=== PATIENT | female | born 1930 | race Caucasian/White ===

== ENCOUNTER 2017-05-12 04:50 | Emergency (ER) | payer MEDICARE ==
[2017-05-12] MEDS ORDERED: Ibuprofen 800 MG TAB ONE (07:55)
--- NOTE | 2017-05-12 07:58 | RAD ---
LEFT KNEE FOUR VIEWS: History: Injury. Left knee pain. FINDINGS/IMPRESSION: No acute fracture or dislocation is identified. No definite joint effusion is seen. POS: [facility]
--- NOTE | 2017-05-12 08:24 | CT ---
PRELIMINARY REPORT/[facility]/EMERGENCY AFTER HOURS PROCEDURE: EXAM: CT Head Without Intravenous Contrast CLINICAL HISTORY: 87 years old, female; Injury or trauma; Fall; Initial encounter; Laceration; Consciousness not specif ied; Without residual foreign body; Head, generalized; Injury date: 05/12/17; Additional info: 87 yo f with h/o alzheimer's presents to ed S/P fall at [facility] last night. Family reports pt has cut to head and reports pt C/O l knee pain. Pt does not take blood thinners. Tetanus current as pt is in a nh. TECHNIQUE: Axial computed tomography images of the head/brain without intravenous contrast. All CT scans at this facility use one or more dose reduction techniques, viz.: automated exposure control; ma/kV adjustme nt per patient size (including targeted exams where dose is matched to indication; i.e. head); or ite rative reconstruction technique. COMPARISON: No relevant prior studies available. FINDINGS: Brain: Moderate volume loss No hemorrhage. Mild white matter disease. No edema. Ventricles: Unremarkable. No ventriculomegaly. Bones/joints: Unremarkable. No acute fracture. Soft tissues: Unremarkable. Sinuses: Minimal air fluid level in the left sphenoid sinus Mastoid air cells: Unremarkable as visualized. No mastoid effusion. IMPRESSION: No intracranial hemorrhage.Please see discussion above. Thank you for allowing us to participate in the care of your patient. Dictated and Authenticated by: Marv Mix MD 05/12/2017 7:10 AM Central Time ([place] & [place]) CT BRAIN WITHOUT CONTRAST: FINAL REPORT I agree with the preliminary report given by Dr. Marv Mix of [facility]. POS: [facility]
--- NOTE | 2017-05-12 08:26 | CT ---
PRELIMINARY REPORT/[facility]/EMERGENCY AFTER HOURS PROCEDURE: EXAM: CT Cervical Spine Without Intravenous Contrast CLINICAL HISTORY: 87 years old, female; Injury or trauma; Fall; Initial encounter; Laceration; Without foreign body; In jury date: 05/12/17; Additional info: 87 yo f with h/o alzheimer's presents to ed S/P fall at [facility] last night. Family reports pt has cut to head and reports pt C/O l knee pain. Pt does not take bl ood thinners. Tetanus current as pt is in a nh. TECHNIQUE: Axial computed tomography images of the cervical spine without intravenous contrast. All CT scans at this facility use one or more dose reduction techniques, viz.: automated exposure control; ma/kV adju stment per patient size (including targeted exams where dose is matched to indication; i.e. head); or iterative reconstruction technique. Coronal and sagittal reformatted images were created and reviewed. COMPARISON: No relevant prior studies available. FINDINGS: Vertebrae: Loss of vertebral body height, presumed degenerative No acute fracture. Discs/spinal canal/neural foramina: No acute findings. Central canal and foraminal stenosis most pron ounced at C5-C6 and C6-C7 Soft tissues: Unremarkable. Lung apices: Right apical scarring IMPRESSION: No definite acute cervical fracture Thank you for allowing us to participate in the care of your patient. Dictated and Authenticated by: Marv Mix MD 05/12/2017 7:09 AM Central Time ([place] & [place]) FINAL REPORT CT CERVICAL SPINE WITH CORONAL AND SAGITTAL REFORMATIONS: Date: 05/12/17 FINDINGS/IMPRESSION: I agree with the preliminary report given by Dr. Marv Mix of [facility]. POS: [facility]
== END 2017-05-12 08:17 | disposition home or self-care (01) ==
LOC: ERS 04:50
DX: S00.81XA Abrasion of other part of head, initial encounter (principal); F03.90 Unspecified dementia, unspecified severity, without behavioral disturbance, psychotic disturbance, mood disturbance, and anxiety; I10 Essential (primary) hypertension; F41.9 Anxiety disorder, unspecified; F32.9 Major depressive disorder, single episode, unspecified; Z79.899 Other long term (current) drug therapy; W19.XXXA Unspecified fall, initial encounter
CPT/HCPCS: 70450; 72125

== ENCOUNTER 2017-05-21 23:51 | Emergency (ER) | payer MEDICARE ==
--- NOTE | 2017-05-22 08:30 | CT ---
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 C/O headache initially that has now resolved. Denies n/v, dizziness, or loc. No other compla ints or injuries reported. TECHNIQUE: Axial computed tomography images of the head/brain without intravenous contrast. All CT scans at this facility use one or more dose reduction techniques, viz.: automated exposure control; ma/kV adjustme nt per patient size (including targeted exams where dose is matched to indication; i.e. head); or ite rative reconstruction technique. COMPARISON: CT Brain WO Con 2017-05-12 06:54 FINDINGS: Brain: Scattered areas of hypoattenuation, likely chronic small vessel ischemic change, demyelination , or gliosis. Ventricles: Normal. Bones/joints: Normal. No acute fracture. Soft tissues: Minimal left frontal soft tissue swelling. Vasculature: Atherosclerotic vascular calcifications. Sinuses: Normal. Mastoid air cells: Normal as visualized. No mastoid effusion. Orbits: Changes of prior ocular surgery. IMPRESSION: 1. No acute intracranial abnormality. 2. Minimal left frontal soft tissue swelling. 3. Incidental/non-acute findings are described above. Thank you for allowing us to participate in the care of your patient. Dictated and Authenticated by: Vamsi Hutchison MD 05/22/2017 1:35 AM Central Time ([place] & [place]) FINAL REPORT EMERGENCY AFTER HOURS BRAIN CT WITHOUT IV CONTRAST: Date: 05/22/17 Time: 0022 hours COMPARISON: 05/12/17. FINDINGS/IMPRESSION: Stable atrophy and chronic white matter ischemic change without mass, bleed, or other significant acu te process. Report in agreement with preliminary report given on-call by [facility]. POS: [facility]
--- NOTE | 2017-05-22 08:36 | CT ---
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 C/O headache initially that has now resolved. Denies n/ v, dizziness, or loc. No other complaints or injuries reported. TECHNIQUE: Axial computed tomography images of the cervical spine without intravenous contrast. All CT scans at this facility use one or more dose reduction techniques, viz.: automated exposure control; ma/kV adju stment per patient size (including targeted exams where dose is matched to indication; i.e. head); or iterative reconstruction technique. COMPARISON: CT Cervical Spine WO Con 2017-05-12 06:54 FINDINGS: Vertebrae: Degenerative changes of the atlantoaxial articulation. Grade 1 degenerative anterolisthesi s of C2 on C3 and grade 1 degenerative retrolisthesis C5 on C6 and C6 on C7. No acute fracture. Discs/spinal canal/neural foramina: Multilevel degenerative disc disease. Multilevel bilateral facet and uncovertebral arthropathy. Bilateral C3-4, right C4-5, bilateral C5-6, and bilateral C6-7 neural foraminal narrowing. Soft tissues: Normal. Lung apices: Normal as visualized. IMPRESSION: 1. No acute findings. 2. Non-acute findings are described above. Thank you for allowing us to participate in the care of your patient. Dictated and Authenticated by: Vamsi Hutchison MD 05/22/2017 1:41 AM Central Time ([place] & [place]) FINAL REPORT CERVICAL SPINE CT SCAN WITHOUT IV CONTRAST: EMERGENT AFTER HOURS SCAN: TIME: 12:34 a.m. DATE: 05/22/17. COMPARISON: 05/12/17. FINDINGS: No evidence for acute fracture or facet dislocation. Moderate to severe multilevel central canal, la teral recess, and foraminal stenosis with extensive disk-osteophytosis and C5-C6 retrolisthesis, all of which is stable from the prior study. POS: [facility]
== END 2017-05-22 02:05 | disposition home or self-care (01) ==
LOC: ERS 23:51
DX: S00.81XA Abrasion of other part of head, initial encounter (principal); F03.90 Unspecified dementia, unspecified severity, without behavioral disturbance, psychotic disturbance, mood disturbance, and anxiety; I10 Essential (primary) hypertension; F41.9 Anxiety disorder, unspecified; F32.9 Major depressive disorder, single episode, unspecified; Z79.899 Other long term (current) drug therapy; W06.XXXA Fall from bed, initial encounter
CPT/HCPCS: 70450; 72125

== ENCOUNTER 2017-10-27 12:07 | Emergency (ER) | payer MEDICARE ==
--- NOTE | 2017-10-27 13:48 | CT ---
CT BRAIN WITHOUT CONTRAST: Comparison: 05-22-17 History: Fall getting out of a chair with head trauma. Head injury. Technique: Multiple contiguous axial images were obtained in a CT of the brain without contrast. FINDINGS: There are scattered hypodensities in the subcortical and periventricular white matter, likely seconda ry to small vessel ischemic disease. No large confluent infarction is seen. Cerebral atrophy is seen. The calvarium and overlying soft tissues are unremarkable. The visualized paranasal sinuses and masto id air cells are well aerated. IMPRESSION: No evidence of acute intracranial abnormality. POS: [facility]
--- NOTE | 2017-10-27 13:50 | CT ---
CT CERVICAL SPINE NONCONTRAST: HISTORY: Fall. Neck injury. COMPARISON: 05/22/2017 FINDINGS: Vertebral body heights are maintained. Multilevel disk space narrowing and prominent osteophytosis a re again demonstrated. The cervicothoracic junction is intact. Multilevel foraminal stenoses. No a cute fracture or dislocation. IMPRESSION: Degenerative changes throughout the cervical spine. No acute osseous abnormalities demonstrated. POS: [facility]
--- NOTE | 2017-10-27 14:04 | CT ---
CT FACE NONCONTRAST: HISTORY: Fall. Facial injury. FINDINGS: The mandible, globes, and zygomatic arches are intact. Postoperative changes of the globes. A small amount of fluid is noted within the left sphenoid sinus air cell. Other paranasal sinuses remain we ll aerated. IMPRESSION: No acute osseous abnormalities are demonstrated. POS: [facility]
== END 2017-10-27 14:51 | disposition home or self-care (01) ==
LOC: ERS 12:07
DX: S01.81XA Laceration without foreign body of other part of head, initial encounter (principal); S41.111A Laceration without foreign body of right upper arm, initial encounter; F03.90 Unspecified dementia, unspecified severity, without behavioral disturbance, psychotic disturbance, mood disturbance, and anxiety; I10 Essential (primary) hypertension; F41.9 Anxiety disorder, unspecified; F32.9 Major depressive disorder, single episode, unspecified; Z79.899 Other long term (current) drug therapy; Z79.01 Long term (current) use of anticoagulants; W19.XXXA Unspecified fall, initial encounter
CPT/HCPCS: 12011; 70450; 70486; 72125; 93005

== ENCOUNTER 2017-11-01 00:21 | Emergency (ER) | payer MEDICARE ==
[2017-11-01 01:46] LABS: #Eosinphils 0.2 thou/uL (0.0-0.7); #Lymphocytes 1.3 thou/uL (1.20-3.40); #Monocytes 0.8 thou/uL (0.11-0.59); #Neutrophils 6.7 thou/uL (1.40-6.50); %Basophils 0.4 % (0.0-1.0); %Eosinophils 2.3 % (0.0-10.0); %Monocytes 9.2 % (0.0-10.0); %Neutrophils 74.2 % (42.0-75.0); Hemoglobin 11.6 g/dL (12.0-16.0); Mean Corpuscular Volume 94.3 fL (78.0-98.0); Mean Platelet Volume 6.2 fL (7.4-10.4); Platelet Count 385 thou/uL (130-400); RBC Distribution Width 12.3 % (11.5-14.5); Red Blood Cell (RBC) Count 3.63 mill/uL (4.20-5.40)
[2017-11-01 02:04] LABS: ALT (SGPT) 14 U/L (8-55); AST (SGOT) 14 U/L (5-34); Albumin 3.7 g/dL (3.4-4.8); Alkaline Phosphatase 98 U/L (40-150); Anion Gap 11 mmol/L (10-20); BUN (Urea Nitrogen) 14 mg/dL (9.8-20.1); Bilirubin, Total 0.2 mg/dL (0.2-1.2); Calc. Creatinine Clearance 0 mL/min (70-130); Calcium 8.8 mg/dL (7.8-10.44); Carbon Dioxide 26 mmol/L (23-31); Chloride 95 mmol/L (98-107); Estimated GFR-MDRD 66; Globulin 3.1 g/dL (2.4-3.5); Glucose 100 mg/dL (83-110); Potassium 4.4 mmol/L (3.5-5.1); Protein, Total 6.8 g/dL (6.0-8.3); Sodium 128 mmol/L (136-145)
[2017-11-01 02:21] LABS: Bilirubin Negative (Negative); Blood, Urine Negative (Negative); Clarity CLEAR (Clear); Glucose, Urine (Dipstick) Negative (Negative); Leukocyte Small (Negative); Nitrite Negative (Negative); Protein, Urine (Dipstick) Negative (Neg-Trace); Urobilinogen 0.2 mg/dL (0.2-1.0); pH, Urine 7.5 (5.0-9.0)
[2017-11-01 02:22] LABS: Bacteria/HPF 1+ HPF (None Seen); Hyaline Casts/LPF 0-3 HYALINE CAST LPF (0-3 Hyaline); Pathc Cast-AUWi Flag 0.58 (0-2.49); Squamous Epithelial None Seen HPF (0-3); WBC/HPF 21-50 HPF (0-3)
--- NOTE | 2017-11-01 09:29 | CT ---
PRELIMINARY REPORT/[facility]/EMERGENTY AFTER-HOURS PROCEDURE CT Head Without Intravenous Contrast CLINICAL HISTORY: 87 years old, female; Injury or trauma; Fall; Initial encounter; Abrasion; Not specified; Patient HX: Ems reports fall at correction TECHNIQUE: Axial computed tomography images of the head/brain without intravenous contrast. COMPARISON: No relevant prior studies available. FINDINGS: Diffuse cerebral volume loss. Chronic small vessel disease. No intracranial hemorrhage or hydrocephalus. No mass, mass effect or midline shift. No effacement of the ventricles, cortical sulci and basal cisterns. Bradford-white matter differentiation is preserved. Atherosclerosis of the intracranial vasculature. No dense MCA sign. Status post bilateral cataract surgeries. Status post scleral banding on the right. Paranasal sinuses are clear. Mastoid air cells are clear. No acute fracture. Soft tissues unremarkable. IMPRESSION: No acute intracranial abnormality. Thank you for allowing us to participate in the care of your patient. Dictated and Authenticated by: Ruperto Richardson MD 11/01/2017 1:19 AM Central Time ([place] & [place]) FINAL REPORT CT BRAIN WITHOUT CONTRAST: I agree with the preliminary report given by Dr. Richardson of [facility]. No significant interval change is seen since the exam of 10/27/17. POS: [facility]
--- NOTE | 2017-11-01 09:42 | CT ---
PRELIMINARY REPORT/[facility]/EMERGENTY AFTER-HOURS PROCEDURE CT Cervical Spine Without Intravenous Contrast CLINICAL HISTORY: 87 years old, female; Injury or trauma; Fall; Initial encounter; Abrasion; Patient HX: Ems reports fa ll at custodial TECHNIQUE: Axial computed tomography images of the cervical spine without intravenous contrast. Coronal and sagittal reformatted images were created and reviewed. COMPARISON: No relevant prior studies available. FINDINGS: Vertebrae: Multilevel degenerative changes consisting of disk space height loss, endplate sclerosis a nd osteophytosis, uncovertebral hypertrophy and facet arthrosis. No acute fracture. Discs/spinal canal/neural foramina: Broad posterior disc osteophyte complex at C5/C6 and C6/C7 with m ild spinal canal stenosis. Uncovertebral hypertrophy with severe bilateral C3/C4, right C4/C5, bilate ral C5/C6 and bilateral C6/C7 neural foramina narrowing. Soft tissues: Unremarkable. Lymph nodes: Scattered nonspecific bilateral lymph nodes are present. Lung apices: Unremarkable. IMPRESSION: 1. No acute cervical spine fracture. 2. Multilevel degenerative changes with spinal canal stenosis and neuroforaminal narrowing as describ ed. Thank you for allowing us to participate in the care of your patient. Dictated and Authenticated by: Ruperto Richardson MD 11/01/2017 1:25 AM Central Time ([place] & [place]) FINAL REPORT CT HEAD WITH CORONAL AND SAGITTAL REFORMATIONS: I agree with the preliminary report given by Dr. Richardson of [facility]. POS: [facility]
--- NOTE | 2017-11-01 10:01 | RAD ---
PORTABLE CHEST 1 VIEW: DATE: 11/01/17. TIME: 12:18 a.m. HISTORY: Fall, chest pain. FINDINGS: Comparison is made with the exam of 09/19/14. The heart size is prominent. There are mild bibasilar infiltrates/atelectatic changes. No pneumotho races, abel pulmonary edema, or large effusions are seen. POS: [facility]
--- NOTE | 2017-11-01 10:02 | RAD ---
RIGHT ELBOW 4 VIEWS: HISTORY: Fall with injury. FINDINGS: No evidence of fracture. No evidence of joint effusion. IMPRESSION: No acute abnormality identified. POS: [facility]
== END 2017-11-01 05:12 | disposition home or self-care (01) ==
LOC: ERS 00:21
DX: S09.90XA Unspecified injury of head, initial encounter (principal); S61.412A Laceration without foreign body of left hand, initial encounter; S61.512A Laceration without foreign body of left wrist, initial encounter; S01.81XA Laceration without foreign body of other part of head, initial encounter; S51.011A Laceration without foreign body of right elbow, initial encounter; E87.1 Hypo-osmolality and hyponatremia; F03.90 Unspecified dementia, unspecified severity, without behavioral disturbance, psychotic disturbance, mood disturbance, and anxiety; F41.9 Anxiety disorder, unspecified; F32.9 Major depressive disorder, single episode, unspecified; Z79.899 Other long term (current) drug therapy; W18.30XA Fall on same level, unspecified, initial encounter
CPT/HCPCS: 36415; 51701; 70450; 71045; 72125; 80053; 81003; 81015; 85025; A4353

== ENCOUNTER 2018-02-15 05:52 | Emergency (ER) | payer MEDICARE ==
--- NOTE | 2018-02-15 07:34 | CT ---
PRELIMINARY REPORT/[facility]/EMERGENCY AFTER HOURS PROCEDURE: EXAM: CT Head Without Contrast EXAM DATE/TIME: 02/15/2018 6:30 AM CLINICAL HISTORY: 87 years old, female; Injury or trauma; Fall; Initial encounter; Abrasion; Jaw or chin; Additional in fo: Additional history obtained from care home, f87 presents to ed for a fall with a chin lacerati on. PT has HX of dementia and frequent falls. Nh reports she was getting into wheelchair and fell, no loc, at baseline. PT reports she does not remember falling. PT denies any pain TECHNIQUE: Axial computed tomography images of the head/brain without contrast. COMPARISON: No relevant prior studies available. FINDINGS: Brain: There is moderate parenchymal volume loss. There are confluent areas of hypoattenuation within the periventricular and subcortical white matter compatible with moderate chronic microvascular isch emic change. There is no evidence of intracranial hemorrhage. Ventricles: Normal. No ventriculomegaly. Bones/joints: Normal. No acute fracture. Sinuses: Normal as visualized. No acute sinusitis. Mastoid air cells: There is partial sclerosis of the RIGHT mastoid air cells probably from chronic in flammatory change. Orbits: There is scleral banding of the globes. Soft tissues: Normal. IMPRESSION: No acute intracranial hemorrhage. Thank you for allowing us to participate in the care of your patient. Dictated and Authenticated by: Petey Mello MD 02/15/2018 6:50 AM Central Time ([place] & [place]) FINAL REPORT HEAD CT WITHOUT CONTRAST: Date: 02/15/18 COMPARISON: None. HISTORY: Trauma. Injury. FINDINGS: This report is in agreement with the preliminary report given by [facility]. The imaged paranasal sinuses/m astoid air cells are grossly unremarkable. No displaced calvarial fracture. There is cerebral volume loss with prominence of the CSF-containing spaces. No intracranial hemorrhag e, midline shift, or mass effect. IMPRESSION: No intracranial hemorrhage. POS: [facility]
== END 2018-02-15 11:18 | disposition home or self-care (01) ==
LOC: ERS 05:52
DX: S01.81XA Laceration without foreign body of other part of head, initial encounter (principal); F03.90 Unspecified dementia, unspecified severity, without behavioral disturbance, psychotic disturbance, mood disturbance, and anxiety; F32.9 Major depressive disorder, single episode, unspecified; F41.9 Anxiety disorder, unspecified; I10 Essential (primary) hypertension; Z79.899 Other long term (current) drug therapy; W05.0XXA Fall from non-moving wheelchair, initial encounter; Y92.129 Unspecified place in nursing home as the place of occurrence of the external cause
CPT/HCPCS: 12011; 70450

== ENCOUNTER 2018-09-25 20:37 | Inpatient (IN) | payer MEDICARE ==
--- NOTE | 2018-09-25 20:53 | CT ---
CT OF BRAIN PERFORMED WITHOUT CONTRAST ENHANCEMENT: 09/25/18 HISTORY: Left sided facial droop. Ventricular and cisternal systems shows some generalized atrophy with decreased attenuation to the pe riventricular white matter consistent with some mild chronic white matter change. There is no signs o f intracerebral hemorrhage or extra-axial fluid collections. No significant change since the 02/15/18 study. Mastoid air cells and visualized sinuses are clear. IMPRESSION: 1. No acute intracranial abnormalities. 2. Findings telephoned to Dr. Germain at 2045 hours. POS: [facility]
[2018-09-25 21:05] LABS: #Eosinphils 0.3 thou/uL (0.0-0.7); #Monocytes 0.9 thou/uL (0.11-0.59); #Neutrophils 10.5 thou/uL (1.40-6.50); %Basophils 0.2 % (0.0-1.0); %Eosinophils 2.5 % (0.0-10.0); %Lymphocytes 7.5 % (21.0-51.0); %Monocytes 7.2 % (0.0-10.0); %Neutrophils 82.7 % (42.0-75.0); Hemoglobin 11.5 g/dL (12.0-16.0); Mean Corpuscular HGB CONC 31.5 g/dL (32.0-36.0); Mean Corpuscular Hemoglobin 29.1 pg (27.0-31.0); Mean Corpuscular Volume 92.2 fL (78.0-98.0); Mean Platelet Volume 6.6 fL (7.4-10.4); Platelet Count 500 thou/uL (130-400); RBC Distribution Width 13.2 % (11.5-14.5); Red Blood Cell (RBC) Count 3.95 mill/uL (4.20-5.40); White Blood Cell (WBC) Count 12.7 thou/uL (4.8-10.8)
[2018-09-25 21:07] LABS: INR-International Normal Ratio 1.1; Prothrombin Time 14.3 SEC (12.0-14.7)
[2018-09-25 21:08] LABS: PTT 40.1 SEC (22.9-36.1)
[2018-09-25 21:23] LABS: ALT (SGPT) 8 U/L (8-55); AST (SGOT) 13 U/L (5-34); Albumin 2.9 g/dL (3.4-4.8); Alkaline Phosphatase 104 U/L (40-150); Anion Gap 13 mmol/L (10-20); BUN (Urea Nitrogen) 17 mg/dL (9.8-20.1); Bilirubin, Total 0.3 mg/dL (0.2-1.2); Calc. Creatinine Clearance 0 mL/min (70-130); Calcium 9.2 mg/dL (7.8-10.44); Carbon Dioxide 25 mmol/L (23-31); Chloride 93 mmol/L (98-107); Estimated GFR-MDRD 59; Globulin 4.3 g/dL (2.4-3.5); Glucose 140 mg/dL (83-110); Potassium 4.4 mmol/L (3.5-5.1); Protein, Total 7.2 g/dL (6.0-8.3); Sodium 127 mmol/L (136-145)
--- NOTE | 2018-09-25 21:36 | RAD ---
Portable frontal chest radiograph: 09/25/2018 COMPARISON: 11/01/2017 HISTORY: Stroke symptoms FINDINGS: There has been interval development of increased density involving the inferior two thirds of the left hemithorax suggesting prominent left pleural effusion and nonspecific associated pulmonary parenchymal opacity. There is complete opacification of the left base with obscuration of t he left hemidiaphragm and left heart border. There is mild increased linear interstitial density throughout the right hemithorax. IMPRESSION: Extensive new dense pleural and parenchymal opacity within the left hemithorax. Findings suggest prominent left pleural effusion with underlying consolidation/collapse. This may be related to infectious pneumonitis, aspiration, or underlying malignancy. Thus, follow-up imaging following tr eatment to document resolution advised.
[2018-09-25 21:46] LABS: CKMB 1.6 ng/mL (0-6.6)
[2018-09-25 22:54] LABS: Bilirubin Moderate (Negative); Blood, Urine Large (Negative); Glucose, Urine (Dipstick) Negative (Negative); Leukocyte Negative (Negative); Nitrite Negative (Negative); Protein, Urine (Dipstick) 30 mg/dL (Neg-Trace)
[2018-09-25 22:57] LABS: Clarity Cloudy (Clear)
[2018-09-25 22:58] LABS: RBC/HPF 21-50 HPF (0-3); Squamous Epithelial 21-50 HPF (0-3)
[2018-09-25 22:59] LABS: Bacteria/HPF Rare-Few HPF (None Seen); Yeast-Budding None Seen HPF (None Seen)
[2018-09-25] MEDS ORDERED: Aztreonam 1 GM in Sodium Chloride 0.9% 100 ML IVPB SCH (23:30)
[2018-09-26 01:33] VITALS: BMI 22.4
[2018-09-26] MEDS ORDERED: Cefepime 1 GM in Sodium Chloride 0.9% 100 ML IVPB SCH (06:45)
[2018-09-26] MEDS: Sodium Chloride 0.9% 1,000 ML IV SCH ×2 (07:16→21:07)
[2018-09-26] MEDS ORDERED: ISOVUE-370 76%-LOCM 1 ML ONE (13:53)
[2018-09-26] MEDS: Cefepime 1 GM in Sodium Chloride 0.9% 100 ML IVPB SCH ×2 (14:19→21:13)
[2018-09-26] MEDS ORDERED: Lorazepam 2 MG/ML VIAL SLOW IVP PRN (15:16)
[2018-09-26] MEDS ORDERED: Acetaminophen 650 MG Suppository PR PRN (15:34)
[2018-09-26] MEDS ORDERED: Bisacodyl 10 MG SUPP PR PRN (15:34)
[2018-09-26] MEDS ORDERED: Benzonatate 100 MG CAP PO PRN (15:37)
--- NOTE | 2018-09-26 16:33 | CT ---
CT Chest W Con HISTORY: Cough. COMPARISON: Chest x-ray done yesterday. FINDINGS: There is a spiculated pleural-based right upper lobe lung mass present measuring approximat ang[place] 15 mm in size. This area is partially visualized on previous CT of cervical spine's and may just represent scar. There is a 6 very small right pleural effusion present. On the left side there is a loculated left-sided effusion. There is complete collapse of the left low er lobe. There is a soft tissue mass density seen along the left side of the anterior mediastinum at the level the aortic arch measuring 4.8 x 3.2 cm in size is highly suspicious for mass does not ap pear to represent consolidated lung. Small mediastinal lymph nodes are seen. Also. Be some mild tracheomalacia type changes. Visualized liver parenchyma shows no focal findings right and left adrenal glands are normal Review of osseous structures show lytic bony change involving the body of the sternum with associated soft tissue mass. No other definitive bone lesions. IMPRESSION: 1. Large loculated left-sided pleural effusion with complete collapse of the left lower lobe and part ial collapse of left upper lobe. In addition there is a 3.2 x 4.8 cm paramediastinal mass just lateral to the anterior mediastinum at the aortic arch level is is very suspicious for neoplasm. 2. Lytic bony change and soft tissue changes of the body of the sternum.
--- NOTE | 2018-09-26 17:41 | PDOC.EVN ---
Event Note - Event Note Event Note: Family would like to keep patient here overnight, continue antibiotics while we wait for the urine culture. Patient has been taking medications crushed up in pudding and family requesting PO antibiotics if needed at discharge tomorrow. Will stop the vancomycin and keep on cefepime for now. Family is requesting dc back to [facility] tomorrow am and Hospice will evaluate her there. They do not wish for any further treatments for lung findings on CT scan. They do not want further lab or imaging. Family may stay overnight, this provider expressed desire for family to stay if possible as it may help with patient's agitation and to prevent her from trying to pull out her IV lines and attempts at getting out of bed.
[2018-09-26] MEDS: Polyethylene Glycol OPTH DROP 15 ML BOT EA EYE SCH ×2 (17:43→21:20)
[2018-09-26] MEDS ORDERED: Non-Formulary Item 1 EACH (Brinzolamide/Brimonidine Tart [Simbrinza 1%/0.2% Ophth Susp] 1 EA EYE SCH (21:00)
[2018-09-26] MEDS: Famotidine/PF 20 mg/2ml Vial SLOW IVP SCH (21:07)
[2018-09-26] MEDS: clonazePAM 0.5 MG TAB PO SCH (21:08)
[2018-09-26] MEDS: Dorzolamide HCl 2% Ophth Soln 10 ml Bottle EA EYE SCH (21:40)
[2018-09-26] MEDS: Brimonidine Tartrate 0.2% Ophth Soln 5 ml Bottle EA EYE SCH (21:40)
[2018-09-26 22:01] LABS: #Eosinphils 0.1 thou/uL (0.0-0.7); #Lymphocytes 0.6 thou/uL (1.20-3.40); #Monocytes 0.9 thou/uL (0.11-0.59); #Neutrophils 8.2 thou/uL (1.40-6.50); %Eosinophils 1.3 % (0.0-10.0); %Lymphocytes 6.3 % (21.0-51.0); %Monocytes 9.2 % (0.0-10.0); %Neutrophils 83.2 % (42.0-75.0); Hemoglobin 10.1 g/dL (12.0-16.0); Mean Corpuscular HGB CONC 31.3 g/dL (32.0-36.0); Mean Corpuscular Hemoglobin 28.9 pg (27.0-31.0); Mean Corpuscular Volume 92.3 fL (78.0-98.0); Mean Platelet Volume 6.1 fL (7.4-10.4); Platelet Count 426 thou/uL (130-400); RBC Distribution Width 13.2 % (11.5-14.5); Red Blood Cell (RBC) Count 3.48 mill/uL (4.20-5.40); White Blood Cell (WBC) Count 9.9 thou/uL (4.8-10.8)
[2018-09-26 22:16] LABS: Troponin I 0.039 ng/mL (< 0.028)
[2018-09-26 22:34] LABS: Albumin 2.5 g/dL (3.4-4.8)
[2018-09-26 22:35] LABS: Chloride 102 mmol/L (98-107); Potassium 4.3 mmol/L (3.5-5.1); Sodium 132 mmol/L (136-145)
[2018-09-26 22:36] LABS: Calcium 8.1 mg/dL (7.8-10.44); Glucose 92 mg/dL (83-110)
[2018-09-26 22:37] LABS: Protein, Total 5.5 g/dL (6.0-8.3)
[2018-09-26 22:38] LABS: Anion Gap 9 mmol/L (10-20); Bilirubin, Total 0.2 mg/dL (0.2-1.2); Carbon Dioxide 25 mmol/L (23-31)
[2018-09-26 22:39] LABS: Alkaline Phosphatase 88 U/L (40-150)
[2018-09-26 22:40] LABS: Calc. Creatinine Clearance 53 mL/min (70-130); Estimated GFR-MDRD 88
[2018-09-26 22:41] LABS: AST (SGOT) 8 U/L (5-34); BUN (Urea Nitrogen) 11 mg/dL (9.8-20.1)
[2018-09-26 22:42] LABS: ALT (SGPT) Less than 7 U/L (8-55)
[2018-09-26] MEDS ORDERED: Vancomycin HCl 750 MG in Sodium Chloride 0.9% 250 ML 250 ML IVPB SCH (23:00)
[2018-09-26] MEDS ORDERED: guaiFENesin/Codeine Phosphate 200 mg/20 mg 10 ml UD Cup PO SCH (23:59)
[2018-09-27] MEDS: Cefepime 1 GM in Sodium Chloride 0.9% 100 ML IVPB SCH ×2 (05:36→14:10)
[2018-09-27 07:39] VITALS: BP 125/83; TEMP 97.8
[2018-09-27] MEDS ORDERED: Cholecalciferol (Vitamin D3) 400 UNITS TAB PO SCH (09:00)
[2018-09-27] MEDS ORDERED: Cyanocobalamin (Vitamin B-12) 1,000 MCG TAB PO SCH (09:00)
[2018-09-27] MEDS ORDERED: Escitalopram Oxalate 20 mg Tablet PO SCH (09:00)
[2018-09-27] MEDS: clonazePAM 0.5 MG TAB PO SCH ×2 (09:04→14:10)
[2018-09-27] MEDS: Polyethylene Glycol OPTH DROP 15 ML BOT EA EYE SCH ×2 (09:10→14:31)
--- NOTE | 2018-09-27 09:10 | HP ---
CHIEF COMPLAINT: Altered mental status. HISTORY OF PRESENT ILLNESS: Ms. Rice is an 88-year-old female, who reported to the emergency room via EMS for evaluation of facial droop on the left, impaired speech, altered mental status. The patient is a patient of [facility] and has dementia, Alzheimer. EMS reports the patient was only responsive to pain and was unable to follow commands, was favoring one side and had a left-sided facial droop. Family reports that the patient is on several medications to help with anxiety, agitation. While in the emergency room, the patient had a brain CT which showed no acute intracranial abnormalities. Lab work with white blood cell count of 12.7, hemoglobin 11.5, hematocrit 36.4, and platelet count 500. Coagulation; PT 14.3, INR 1.1, and APTT is 40.1. Sodium 127, potassium 4.4, chloride 93, creatinine is 0.9, estimated GFR is 59. Initial troponin 0.035. The patient also had a chest x-ray, which showed extensive new pleural dense parenchymal opacity within the left hemothorax. Findings suggestive of prominent left pleural effusion with underlying consolidation collapse may be related to infectious pneumonitis, aspiration, underlying malignancy. The patient's medical power of digitizer is Clifton Apodaca. He was contacted and after discussion with the ER physician, it was decided not to follow through with the stroke workup, treat patient for the potential pneumonia and observe overnight and potentially contact Hospice for further arrangements. The patient was also made do not resuscitate. The patient was given a dose of Azactam and vancomycin and liter of fluid and was admitted to the medical unit for further plans. PAST MEDICAL HISTORY: Dementia, hypertension, glaucoma, recurrent UTIs per residential record. PAST SURGICAL HISTORY: None. SOCIAL HISTORY: No history of alcohol or drug or smoking history. Psych history includes anxiety and depression per the residential record. ALLERGIES: KNOWN ALLERGIES TO PENICILLIN. HOME MEDICATIONS: 1. Tylenol 650 mg p.o. q.6 hours as needed. 2. Tessalon 100 mg one p.o. t.i.d. p.r.n. 3. Simbrinza 1% one drop each eye b.i.d. 4. Vitamin D 400 units one tablet p.o. daily. 5. Klonopin 0.5 mg p.o. t.i.d. 6. Vitamin B12 1000 mcg p.o. daily. 7. Maalox 30 mL p.o. q.6 hours as needed. 8. Phenergan 25 mg one tablet p.o. t.i.d. p.r.n. 9. Systane one drop each eye q.i.d. 10. Seroquel 25 mg one tablet p.o. b.i.d. 11. Effexor daily. PHYSICAL EXAMINATION: VITAL SIGNS: Blood pressure 106/69, pulse is 73, pO2 sats are 97% on 2 L. Temp is 98.9. CONSTITUTIONAL: The patient is arousable. She will open her eyes when you say her name. Does not follow commands. HEENT: Head is atraumatic and normocephalic. Eyes; eyelids are normal to inspection. Pupils are equal, round, and reactive to light. ENT; mucous membranes are dry. Mouth exam is normal. NECK: Trachea is midline. Supple. RESPIRATORY/CHEST: Breath sounds are absent on the left, diminished on the right at the bases. Right side breath sounds are coarse. CARDIOVASCULAR: Regular heart rate and rhythm. Heart sounds are normal. ABDOMEN: Nontender. Bowel sounds are heard. Extremities: Upper extremity inspection is normal. Radial pulses are normal. Lower extremity inspection is normal. Pedal pulses are normal. There is no edema noted. NEUROLOGIC: The patient will open her eyes, but does not follow commands. She does move her extremities spontaneously. SKIN: Warm and dry. Normal in color. PLAN AND ASSESSMENT: 1. Altered mental status with a baseline of dementia and Alzheimer's. Discussion were held this morning with the patient's son-in-law who is medical power of digitizer and family friend at the bedside per her wishes for care, medical power of digitizer Mr. Apodaca states the patient has expressed on multiple occasions for years that she would like to be on hospice when she qualifies. They do not want any further testing and reviews of the lab work that was ordered for this morning and requested palliative care hospice. The patient was made do not resuscitate. They were agreeable to continue the antibiotics for now and requested more time to discuss with hospice palliative care. Blood cultures and urine culture were sent off from the emergency room. 2. Dehydration with hyponatremia. The patient is receiving some gentle hydration. 3. Alzheimer dementia. We will reconcile home medications and restart. 4. Plan discussed with Dr. Burton who agrees. 5. Hospital course is dependent on clinical findings. Job ID: [id number]
[2018-09-27] MEDS: Dorzolamide HCl 2% Ophth Soln 10 ml Bottle EA EYE SCH (09:12)
[2018-09-27] MEDS: Brimonidine Tartrate 0.2% Ophth Soln 5 ml Bottle EA EYE SCH (09:15)
[2018-09-27] MEDS: Famotidine/PF 20 mg/2ml Vial SLOW IVP SCH (09:16)
[2018-09-27] MEDS: Sodium Chloride 0.9% 1,000 ML IV SCH (11:31)
[2018-09-27] MEDS ORDERED: Morphine 2 MG/ML SYRINGE SLOW IVP PRN (13:58)
--- NOTE | 2018-09-27 17:54 | DIS ---
DATE OF ADMISSION: 09/26/2018 DATE OF DISCHARGE: 09/27/2018 CONDITION: At the time of discharge, stable and improved. DISCHARGE DISPOSITION: Back to [facility] with hospice. PRIMARY CARE PHYSICIAN: Dr. Ramo Gee. IN-HOUSE CONSULTATION: Palliative Care. PROCEDURES DONE IN THE HOSPITAL: 1. CT scan of the brain upon presentation, which did not show any acute intracranial abnormalities. 2. CT scan of the chest, which shows large loculated left-sided pleural effusion with complete collapse of the left lower lobe and partial collapse of the left upper lobe with a paramediastinal mass suspicious for neoplasm and lytic bony changes and soft tissue changes of the body of the sternum. DISCHARGE MEDICATIONS: As per the hospice. HISTORY OF PRESENTING ILLNESS: Ms. Rice is a pleasant 88-year-old female with known history of dementia, hypertension, and recurrent urinary tract infection, who is at a senior care, was brought into the emergency room with complaints of facial droop of the left impaired speech and altered mental status. CT scan of the brain did not show any acute abnormalities. Her blood work was consistent with a low sodium of 127, otherwise unremarkable. She had mild bump in troponin to 0.035. Chest x-ray showed extensive pleural dense parenchymal opacity and CT scan was done, which showed collapse of the left lung and pleural effusion and mediastinal mass suspicious for malignancy. Her family members including her medical power of corporate associate attorney, Mr. Sarah Apodaca was contacted and it was decided that she would not follow through the stroke workup and we will treat her empirically and palliatively for pneumonia and observe her overnight with eventual goal of transitioning to comfort care and hospice. Please see admission history dictated by Ms. Margie Be, nurse practitioner from yesterday for full details. HOSPITAL COURSE: As of this morning, hospice has been consulted and I have discussed the care with multiple family members at bedside as well. The patient has no improvement in her symptoms and has been accepted for hospice back at [facility] and the family is eager to take her back. She will be discharged. She was seen and examined this morning. PHYSICAL EXAMINATION: VITAL SIGNS: Temperature 97.8, heart rate 102, respirations 22, saturating 95% on room air, blood pressure 125/83. GENERAL: No acute distress. She is difficult to wake up and very somnolent and unresponsive. ABDOMEN: Soft. EXTREMITIES: Free of any cyanosis, clubbing, or edema. HEART: Rate and rhythm are regular. CHEST: Shows decreased breath sounds at lung bases, mostly left. DISCHARGE PLAN: Discharge plan was discussed with multiple family members at bedside, who verbalized understanding. TIME SPENT: Total time spent in the discharge, 35 minutes. Job ID: [id number]
[2018-09-28] MEDS ORDERED: Famotidine/PF 20 mg/2ml Vial SLOW IVP SCH (09:00)
== END 2018-09-27 15:40 | disposition hospice, inpatient (51) | DRG 91 ==
LOC: ERS 20:37 → T4-B 23:58 → OBSVTOIN 09-26 17:32
PROVIDERS: ADMIT Hospitalist; ATTEND Hospitalist
DX: R29.810 Facial weakness (principal); J18.9 Pneumonia, unspecified organism; E87.1 Hypo-osmolality and hyponatremia; J90 Pleural effusion, not elsewhere classified; C38.3 Malignant neoplasm of mediastinum, part unspecified; Z51.5 Encounter for palliative care; Z66 Do not resuscitate; G30.9 Alzheimer's disease, unspecified; F02.80 Dementia in other diseases classified elsewhere, unspecified severity, without behavioral disturbance, psychotic disturbance, mood disturbance, and anxiety; I10 Essential (primary) hypertension; H40.9 Unspecified glaucoma; R41.82 Altered mental status, unspecified; E86.0 Dehydration; R45.1 Restlessness and agitation; R47.9 Unspecified speech disturbances; Z88.0 Allergy status to penicillin
CPT/HCPCS: 36415; 36416; 51701; 70450; 71045; 71260; 80053; 81003; 81015; 82553; 84484; 85025; 85610; 85730; 87040; 87086; 93005; 94640; 94760; 96361; 96365; 96375; A4353; J0692; J2060; J2270; J3370; J3490; J7050; J7620; Q9966; S0028